=== PATIENT | female | born 1950 | race Caucasian/White ===

== ENCOUNTER 2022-07-03 16:06 | Outpatient (CLI) | payer MEDICARE, SELFPAY ==
--- OUTSIDE RECORDS SUMMARY | 2022-07-03 08:14 | XMS_ITS | Clinical Summary ---
:1950 Author Organization [employer] [facility] [employer] [facility] [place] [address] Care Team Providers Name Role Phone Rasta Maldonado MD Primary Care Provider Jumana Capps Unavailable [phone] Allergies No known active allergies Medications Medication Sig Dispensed Refills Start End Date Status Date lisinopril Take 1 tablet by 0 Ac tive (PRINIVIL; mouth 2 times 3 ZESTRIL) 20 mg daily. tablet carvedilol (COREG) Take 1 tablet by 0 Active 25 mg tablet mouth 2 times 3 daily with meals. spironolactone Take 1 tablet by 0 Active (ALDACTONE) 25 mg mouth once daily. 3 tablet HYDROcodone-acetam Take 1 tablet by 40 tablet 0 Active inophen, 5-500 mg, mouth every 6 3 (VICODIN) Tab hours if needed tablet for Pain. Max acetaminophen dose: 4000mg in 24 hrs. nystatin Apply topically 30 g 0 Acti ve (MYCOSTATIN) to affected 6 creamIndications: area(s) 3 times Skin yeast daily. infection fluconazole Take one tablet 6 tablet 0 Ac tive (DIFLUCAN) 150 mg twice weekly x 3 6 tabletIndications: weeks. Rochelle infection spironolactone Take 1 Tablet (25 90 tablet. 4 Active (ALDACTONE) 25 mg mg) by mouth once 1 tabletIndications: daily. Primary cardiomyopathy (HC) losartan (COZAAR) TAKE ONE TABLET 90 Tablet 2 Active 25 mg BY MOUTH ONE TIME 2 tabletIndications: DAILY Primary cardiomyopathy (HC) atorvastatin TAKE ONE TABLET 90 Tablet 2 A ctive (LIPITOR) 20 mg BY MOUTH ONE TIME 2 tabletIndications: DAILY Primary cardiomyopathy (HC) carvediloL (COREG) TAKE ONE TABLET 180 Tablet 2 Active 25 mg BY MOUTH TWICE A 2 tabletIndications: DAY WITH MEALS Primary cardiomyopathy (HC) atorvastatin Take 1 Tablet (20 90 tablet. 4 06/18/20 Discontinued (LIPITOR) 20 mg mg) by mouth once 10 14 tabletIndications: daily. Primary cardiomyopathy (HC) carvediloL (COREG) Take 1 Tablet (25 180 tablet. 4 0 06/18/20 Discontinued 25 mg mg) by mouth 2 10 14 tabletIndications: times daily with Primary meals. cardiomyopathy (HC) losartan (COZAAR) Take 1 Tablet (25 90 Tablet 4 05/25 Discontinued 25 mg mg) by mouth once 10 14 tabletIndications: daily. Primary cardiomyopathy (HC) Active Problems No known active problems Encounters Date Type Specialty Care Team Description 06/18/2022 Refill Fernando Gibson MD Re fill Request (Losartan, Atorvastatin, C arvedilol) from Last 3 Months Immunizations Name Administration Dates Next Due Td (Age >=7 Years) 12/19/1999 Family History Medical History Relation Name Comments Cancer Father Lung 1978 Relation Name Status Comments Father Social History Tobacco Use Types Packs/Day Years Used Date Former Smoker Cigarettes 0.5 30 Quit: 03/06/20 14 Smokeless Tobacco: Never Used Tobacco Cessation: Counseling Given: Yes Alcohol Use Standard Drinks/Week Comments Yes 0 (1 standard drink = 0.6 oz pure alcoho l) rarely Sex Assigned at Date Recorded Not on file Obstetrics History Last Filed Vital Signs Vital Sign Reading Time Taken Comments Blood Pressure 140/84 04/11/2016 9:47 AM CDT Pulse 87 04/11/2016 9:47 AM CDT Temperature 37.3 ??C (99.1 ??F) 04/11/2016 9:47 AM CDT Respiratory Rate - - Oxygen Saturation 94% 04/11/2016 9:47 AM CDT Inhaled Oxygen Concentration - - Weight 99.6 kg (219 lb 9.6 oz) 04/11/2016 9:47 AM CDT Height 158.5 cm (5' 2.4) 04/11/2016 9:47 AM CDT Body Mass Index 39.65 04/11/2016 9:47 AM CDT Plan of Treatment Health Maintenance Due Date Last Done Comments Pneumococcal series for age 65+ (1 - 1957 PCV) Tdap 1962 Depression screening for age 12+ 1963 Hepatitis C screening for age 18-79 1969 Colonoscopy through age 75 01/10/1996 Lipids for age 45-75 01/10/1996 Mammogram for age 45-75 01/10/1996 Zoster (shingles) series for age 50+ 2001 (1 of 2) Tetanus booster 12/18/2009 12/19/1999 DEXA/DXA scan for age 65+ 01/10/2016 Medicare Wellness for age 65+ 01/10/2016 BMI (ht and wt on same day) for age 0704/11/2017 04/11/2016 18+ COVID-19 vaccine series (4 - Booster 04/28/2022 03/03/2022, 02/21/2021, for Moderna series) 01/23/2021 Influenza for age 65+ 05/24/2022 Results Not on filefrom Last 3 Months Insurance Payer Benefit Plan / Subscriber ID Effective Dates Phone Addre ss Type Group MEDICARE PART B MEDICARE PART [id number] 2015-Presen ATTN: CLAIMS - HB USE ONLY B HB ONLY t [address] [place] [address] MEDICARE PART A MEDICARE PART [id number] 2015-Presen ATTN: CLAIMS - HB USE ONLY A HB ONLY t [address] [place] [address] [facility] MR [id number] 2021-Presen [address] [place] [address] [employer] [id number] 2017-Presen [address] [address] [place] [address] [id number] Care Teams Woodworking Shop Hand Relationship Specialty Start Date End Date Rasta Maldonado MD PCP - General Internal Medicine 04/04/181999 [place], [place] [id number] Jumana Capps PA Family Practice 04/04/18 [address] [place] [address]
[2022-07-03 09:35] LABS: Cholesterol* 187 mg/dL (90-199); Glucose* 184 mg/dL (60-115)
[2022-07-03 09:36] LABS: HDL Cholesterol* 49 mg/dL (>=50); LDL Cholesterol Calculated 108 mg/dL (<100); Triglycerides* 151 mg/dL (40-149)
[2022-07-03 09:44] LABS: Creatinine Urine 66.6 mg/dL
[2022-07-03 09:49] LABS: Microalbumin Creatinine Ratio 10 mg/g (0-30); Microalbumin Urine < 1 mg/dL
== END 2022-07-03 16:07 | disposition home or self-care (01) ==
PROVIDERS: PCP Internal Medicine; Visit Provider Internal Medicine
DX: E11.9 Type 2 diabetes mellitus without complications (principal); E78.5 Hyperlipidemia, unspecified; I42.9 Cardiomyopathy, unspecified
CPT/HCPCS: 80061; 82043; 82570; 82947

== ENCOUNTER 2023-03-04 08:58 | Outpatient (CLI) | payer MEDICARE, SELFPAY | END 2023-03-04 08:59 | disposition home or self-care (01) | PROVIDERS: PCP Internal Medicine; Visit Provider Internal Medicine | DX: I10 Essential (primary) hypertension (principal); E78.5 Hyperlipidemia, unspecified; E11.9 Type 2 diabetes mellitus without complications | CPT/HCPCS: 80061; 82043; 82570; 82947 ==

== ENCOUNTER 2023-07-05 10:30 | Outpatient (CLI) | payer MEDICARE, SELFPAY ==
[2023-07-05 11:34] LABS: Creatinine Urine 86.6 mg/dL
[2023-07-05 11:39] LABS: Microalbumin Creatinine Ratio 10 mg/g (0-30); Microalbumin Urine 1 mg/dL
== END 2023-07-05 10:31 | disposition home or self-care (01) ==
LOC: NFLDREF 10:30
PROVIDERS: PCP Internal Medicine; Visit Provider Internal Medicine
DX: E11.9 Type 2 diabetes mellitus without complications (principal); I10 Essential (primary) hypertension; E78.5 Hyperlipidemia, unspecified; I42.9 Cardiomyopathy, unspecified
CPT/HCPCS: 80048; 82043; 82570

== ENCOUNTER 2024-01-22 07:41 | Outpatient (CLI) | payer MEDICARE, SELFPAY ==
--- OUTSIDE RECORDS SUMMARY | 2024-01-22 07:43 | XMS_ITS | Clinical Summary ---
Author Name Unknown Organization [employer] [facility] Address [place], [place] [address] Care Team Providers Care Senior Developer Name Role Phone Rasta Maldonado MD Primary Care Provider Jumana Capps Unavailable Allergies No known active allergies Medications Medication Sig Dispensed Refills Start Date End Date Status HYDROcodone-acetamin ophen, 5-500 mg, (VICODIN) Tab tablet Take 1 tablet by mouth every 6 hours if needed for Pain. Max acetaminophen dose: 4000mg in 24 hrs. 40 tablet 0 03/17/2013 Active nystatin (MYCOSTATIN) creamIndications:Ski n yeast infection Apply topically to affected area(s) 3 times daily. 30 g 0 04/11/2016 Active fluconazole (DIFLUCAN) 150 mg tabletIndications:Ca ndida infection Take one tablet twice weekly x 3 weeks. 6 tablet 0 04/18/2016 Active spironolactone (ALDACTONE) 25 mg tabletIndications:Pr imary cardiomyopathy (HC) Take 1 Tablet (25 mg) by mouth once daily. 90 tablet. 4 05/12/2021 Active carvediloL (COREG) 25 mg tabletIndications:Pr imary cardiomyopathy (HC) TAKE ONE TABLET BY MOUTH TWICE A DAY WITH MEALS 180 Tablet 2 06/18/2022 Active losartan (COZAAR) 25 mg tabletIndications:Pr imary cardiomyopathy (HC) Take 4 Tablets (100 mg) by mouth once daily. 90 Tablet 2 07/05/2023 Active dapagliflozin propanediol (Farxiga) 10 mg tabletIndications:Pr imary cardiomyopathy (HC) Take 1 Tablet (10 mg) by mouth once daily. 0 07/05/2023 Active aspirin (ECOTRIN) 81 mg enteric coated tabletIndications:Pr imary cardiomyopathy (HC) Take 1 Tablet (81 mg) by mouth once daily with a meal. 0 07/05/2023 Active atorvastatin (LIPITOR) 20 mg tabletIndications:Pr imary cardiomyopathy (HC) TAKE ONE TABLET BY MOUTH ONE TIME DAILY 90 Tablet 3 07/16/2023 Active Active Problems No known active problems Immunizations Name Administration Dates Next Due Td (Age >=7 Years) 12/19/1999 Family History Medical History Relation Name Comments Cancer Father Lung 1977 Relation Name Status Comments Father Social History Tobacco Use Types Packs/Day Years Used Date Smoking Tobacco: Former Cigarettes 0.5 30 0 03/06/1984 - 03/06/2014 Smokeless Tobacco: Never Tobacco Cessation:Counseling Given: Yes Alcohol Use Standard Drinks/Week Comments Yes 0 (1 standard drink = 0.6 oz pur e alcohol) rarely Social Connections Answer Date Recorded Frequency of Communication with Friends and Fami ly Not on file 09/23/2021 Financial Resource Strain Answer Date R ecorded Difficulty of Paying Living Expenses Not on file 09/23/2021 Difficulty of Paying Living Expenses Not on file 09/23/2021 Sex and Gender Information Value Date Recorded Sex Assigned at Not on file Gender Identity Not on file Sexual Orientation Not on file Obstetrics History Last Filed Vital Signs Vital Sign Reading Time Taken Comments Blood Pressure 140/84 04/11/2016 9:47 AM CDT Pulse 87 04/11/2016 9:47 AM CDT Temperature 37.3 ??C (99.1 ??F) 04/11/2016 9:47 AM CD T Respiratory Rate - - Oxygen Saturation 94% 04/11/2016 9:47 AM CDT Inhaled Oxygen Concentration - - Weight 99.6 kg (219 lb 9.6 oz) 04/11/2016 9:47 A M CDT Height 158.5 cm (5' 2.4) 04/11/2016 9:47 AM CDT Body Mass Index 39.65 04/11/2016 9:47 AM CDT Plan of Treatment Upcoming Encounters Date Type Department Care Team (Late st Contact Info) Description 01/22/2024 8:00 AM CDT Ancillary Procedure [facility] [address] [place] [address] Health Maintenance Due Date Last Done Comments Tdap 1962 Depression screening for age 12+ 1963 Hepatitis C screening for ag e 18-79 1969 Colonoscopy through age 75 01/10/1996 Lipids for age 45-75 01/10/1996 Mammogram for age 45-75 01/10/1996 Zoster (shingles) series for age 50+ (1 of 2) 2001 Tetanus booster 12/18/2009 12/19/1999 DEXA/DXA scan for age 65+ 01/10/2016 Medicare Wellness for age 65+ 01/10/2016 Pneumococcal series for age 65+ (1 of 1 - PCV) 01/10/2016 BMI (ht and wt on same day) for age 18+ 04/11/2017 04/11/2016 Influenza for age 65+ 05/24/2024 COVID-19 vaccine series Completed 06/21/20, 07/04/2022, 03/03/2022, Additional history exists Care Teams Senior Developer Relationship Specialty Start Date End Date Rasta Maldonado MD [address] [place] [address] PCP - General Internal Medicine 04/04/18 Jumana Capps PA [address] [place] [address] Family Practice 04/04/18
[2024-01-22] MEDS: PERFLUTREN LIPID MICROSPHERES 2 ML VIAL IV (08:58)
== END 2024-01-22 07:42 | disposition home or self-care (01) ==
LOC: RAD 07:42
PROVIDERS: PCP Internal Medicine; Visit Provider Internal Medicine
DX: I50.9 Heart failure, unspecified (principal); I34.0 Nonrheumatic mitral (valve) insufficiency; I35.1 Nonrheumatic aortic (valve) insufficiency
CPT/HCPCS: 93306; Q9957

== ENCOUNTER 2024-02-10 07:00 | Outpatient (CLI) | payer MEDICARE, SELFPAY ==
--- OUTSIDE RECORDS SUMMARY | 2024-02-28 08:39 | XMS_ITS | Clinical Summary ---
Author Organization [employer] [facility] Address [place], [place] [address] Care Team Providers Care Verification Specialist Name Role Phone Rasta Maldonado MD Primary Care Provider Jumana Capps Unavailable [phone] Allergies No known active allergies Medications Medication [...] Active Active Problems No known active problems Encounters Date Type Department Care Team Description 01/23/2024 Telephone [facility] [address] [place] [address] [facility] [place] [address] Raiza Kam MD Results 01/22/2024 8:00 AM CDT Ancillary Procedure [facility] [address] [place] [address] 01/22/2024 Travel from Last 3 Months Immunizations Name Administration [...] age 65+ 05/24/2024 COVID-19 vaccine series Completed 06/21/20 23, 07/04/2022, 03/03/2022, Additional history exists Procedures Procedure Name Priority Date/Time Associated Diagnosis Comments ECHO TTE COMPLETE W CONTRAST Routine 01/22/2024 8:58 AM CDT Heart failure (HC) from Last 3 Months Results * ECHO TTE COMPLETE W CONTRAST (01/22/2024 8:58 AM CDT) AORTIC VALVE MEAN PG 5 mmHg EJECTION FRACTION 55 % LVEDD 5.8 cm Anatomical Region Laterality Modality Ultrasound 01/22/2024 8:07 AM CDT Narrative 01/22/2024 10:19 AM CDT ECHOCARDIOGRAM DIANE ROLDAN ? Accession#: ?? [id number] : ?1950 74 years Study Date: ?? 01/22/2024 8:07:04 AM Gender: F ?BP: ? 154/75 mmHg Height: 157.00 cm ?BSA: ?1.99 m? ? ? Weight: 100.00 kg ?Tech: ? MSR ? Referring MD: RAIZA KAM Site: ? [facility] Reading Location: Mobile OP Patient Location: Outpatient. Procedure: 2D w/ Contrast, Color Doppler and Spectral Doppler. Indication for study: Heart failure Cardiac Rhythm: Regular.Study quality: Technically limited. Final Impressions: 1. Technically limited exam. 2. Mild to moderately increased left ventricular size, normal wall thickness, low normal global systolic function, calculated EF of 55 %. 3. Echo contrast was administered to enhance visualization of all left ventricular segments. 4. Right ventricular cavity size is normal, global systolic RV function is normal. 5. Normal left atrium size. 6. The aortic valve is normal, no stenosis and trivial regurgitation. 7. The mitral valve is sclerotic, trace mitral regurgitation. 8. Tricuspid valve is normal. 9. No pericardial effusion. Chamber Sizes and Function Mild to moderately increased left ventricular size, normal wall thickness, low normal global systolic function, calculated EF of 55 %. Left atrial size is normal. Right ventricular cavity size is normal, global systolic RV function is normal. The right atrium is normal. The pulmonary artery is not well visualized. The sinus of Valsalva is normal sized. The ascending aorta is normal sized. Valves, RV Pressures and Diastolic Function The aortic valve is normal in structure, no stenosis and trivial regurgitation. The mitral valve is sclerotic, trace mitral regurgitation. Indeterminate pattern of LV diastolic filling. The tricuspid valve is normal in structure. Tricuspid regurgitation is trace regurgitation. The pulmonic valve is normal. Trace pulmonary regurgitation. Masses, Effusion, Shunts There is no pericardial effusion. The inferior vena cava is normal sized, respiratory size variation greater than 50%. Interatrial septum is not well visualized. MEASUREMENTS AND CALCULATIONS 2-D Measurements and LV Function: LVID (d) 5.8 cm Planimetered EF 55 % LVID (s) 4.5 cm LV FS% (2D) ? 23 % IVS (d) ??0.9 cm LVOT diameter ?? 2.2 cm LVPW (d) 0.9 cm HR ?71 bpm Ao Sinus 3.0 cm LA Vol index ?26 ml/m2 Asc Ao ?? 3.7 cm RV Max 4C (d) ?? 3.4 cm Diastology: Mitral ?Tissue Doppler E Peak 0.8 m/s ??e', Septum ? 0.06 m/s A Peak 1.0 m/s ??e', Lateral ?0.06 m/s E/A ?0.8 ?E/e' Average ?? 13.27 DT ? 219 msec Aortic Valve: Vmax ? 1.5 m/s ??WILL (V) ?? 2.56 cm? ? ? VTI ?0.34 m ?? WILL (I) ?? 2.75 cm? ? ? LVOT V max 1.0 m/s ??Max PG ?9 mmHg LVOT VTI ?? 0.23 m ?? Mean PG ?? 5 mmHg SV ? 93 ml ?Dim Index 0.69 SV index ?? 47 ml/m? ? ? CO ?6.6 l/min ?CI ?3.3 l/min/m? ? ? Mitral Valve: MVA ? 3.5 cm? ? ? MV P 1/2 ??64 msec MV Mean G 3 mmHg MV VTI ?0.34 m Tricuspid Valve and estimated PA pressures: TAPSE 2.2 cm Contrast documentation: 2 ml diluted Definity, lot #[id number], [facility]# [id number] was administered peripherally to enhance visualization of all left ventricular segments. . This study was interpreted by an IAC accredited facility. CC: HIM (med records) [facility]. ??Final ?? Procedure Note Letty Coles, [facility] - 01/22/2024 ECHOCARDIOGRAM DIANE ROLDAN : 1950 74 years Study Date: 01/22/2024 8:07:04 AM Gender: F BP: 154/75 mmHg Height: 157.00 cm BSA: 1.99 m? ? ? Weight: 100.00 kg Tech: MSR Referring MD: RAIZA KAM Site: [facility] Reading Location: Mobile OP Patient Location: Outpatient. Procedure: 2D w/ Contrast, Color Doppler and Spectral Doppler. Indication for study: Heart failure Cardiac Rhythm: Regular.Study quality: Technically limited. Final Impressions: 1. Technically limited exam. 2. Mild to moderately increased left ventricular size, normal wallthickness, low normal global systolic function, calculated EF of 55 %. 3. Echo contrast was administered to enhance visualization of all leftventricular segments. 4. Right ventricular cavity size is normal, global systolic RV functionis normal. 5. Normal left atrium size. 6. The aortic valve is normal, no stenosis and trivial regurgitation. 7. The mitral valve is sclerotic, trace mitral regurgitation. 8. Tricuspid valve is normal. 9. No pericardial effusion. Chamber Sizes and Function Mild to moderately increased left ventricular size, normal wall thickness,low normal global systolic function, calculated EF of 55 %. Left atrialsize is normal. Right ventricular cavity size is normal, global systolicRV function is normal. The right atrium is normal. The pulmonary artery isnot well visualized. The sinus of Valsalva is normal sized. The ascendingaorta is normal sized. Valves, RV Pressures and Diastolic Function The aortic valve is normal in structure, no stenosis and trivialregurgitation. The mitral valve is sclerotic, trace mitral regurgitation.Indeterminate pattern of LV diastolic filling. The tricuspid valve isnormal in structure. Tricuspid regurgitation is trace regurgitation. Thepulmonic valve is normal. Trace pulmonary regurgitation. Masses, Effusion, Shunts There is no pericardial effusion. The inferior vena cava is normal sized,respiratory size variation greater than 50%. Interatrial septum is notwell visualized. MEASUREMENTS AND CALCULATIONS 2-D Measurements and LV Function: LVID (d) 5.8 cm Planimetered EF 55 % LVID (s) 4.5 cm LV FS% (2D) 23 % IVS (d) 0.9 cm LVOT diameter 2.2 cm LVPW (d) 0.9 cm HR 71 bpm Ao Sinus 3.0 cm LA Vol index 26 ml/m2 Asc Ao 3.7 cm RV Max 4C (d) 3.4 cm Diastology: Mitral Tissue Doppler E Peak 0.8 m/s e', Septum 0.06 m/s A Peak 1.0 m/s e', Lateral 0.06 m/s E/A 0.8 E/e' Average 13.27 DT 219 msec Aortic Valve: Vmax 1.5 m/s WILL (V) 2.56 cm? ? ? VTI 0.34 m WILL (I) 2.75 cm? ? ? LVOT V max 1.0 m/s Max PG 9 mmHg LVOT VTI 0.23 m Mean PG 5 mmHg SV 93 ml Dim Index 0.69 SV index 47 ml/m? ? ? CO 6.6 l/min CI 3.3 l/min/m? ? ? Mitral Valve: MVA 3.5 cm? ? ? MV P 1/2 64 msec MV Mean G 3 mmHg MV VTI 0.34 m Tricuspid Valve and estimated PA pressures: TAPSE 2.2 cm Contrast documentation: 2 ml diluted Definity, lot #[id number], [facility]#[id number] was administered peripherally to enhance visualization of allleft ventricular segments. . This study was interpreted by an IAC accredited facility. CC: [facility] (med [facility]) [facility]. Final Raiza Kam MD ECHO ORD from Last 3 Months Care Teams Verification Specialist Relationship Specialty Start Date End Date Rasta Maldonado MD [address] [place] [address] PCP - General Internal Medicine 04/04/18 Jumana Capps PA [address] [place] [address] Family Practice 04/04/18
== END 2024-02-10 07:01 | disposition home or self-care (01) ==
LOC: NFLDREF 02-28 08:37
PROVIDERS: PCP Internal Medicine; Referring Provider Internal Medicine; Visit Provider Internal Medicine
DX: E11.9 Type 2 diabetes mellitus without complications (principal); E78.5 Hyperlipidemia, unspecified; I10 Essential (primary) hypertension
CPT/HCPCS: 80053; 80061; 82043; 82570

== ENCOUNTER 2024-06-22 14:42 | Outpatient (CLI) | payer MEDICARE, SELFPAY ==
--- OUTSIDE RECORDS SUMMARY | 2024-06-22 14:44 | XMS_ITS | Clinical Summary ---
Author Organization [employer] [facility] Address [place], [place] [address] Care Team Providers Care Electrical Sign Servicer Name Role Phone Rasta Maldonado MD Primary Care Provider Jumana Capps Unavailable [phone] Allergies No known active allergies Medications Medication [...] 3 weeks. 6 tablet 0 04/18/2016 Active aspirin (ECOTRIN) 81 mg enteric coated tabletIndications:Pr imary cardiomyopathy (HC) Take 1 Tablet (81 mg) by mouth once daily with a meal. 90 Tablet 3 04/16/2024 Active atorvastatin (LIPITOR) 20 mg tabletIndications:Pr imary cardiomyopathy (HC) Take 1 Tablet (20 mg) by mouth once daily. 90 Tablet 3 04/16/2024 Active carvediloL (COREG) 25 mg tabletIndications:Pr imary cardiomyopathy (HC) Take 1 Tablet (25 mg) by mouth two times daily with meals. 180 Tablet 2 04/16/2024 Active empagliflozin (Jardiance) 10 mg tabletIndications:Pr imary cardiomyopathy (HC) Take 1 Tablet (10 mg) by mouth once daily. 90 Tablet 3 04/16/2024 Active losartan (COZAAR) 100 mg tabletIndications:Pr imary cardiomyopathy (HC) Take 1 Tablet (100 mg) by mouth once daily. 90 Tablet 3 04/16/2024 Active spironolactone (ALDACTONE) 25 mg tabletIndications:Pr imary cardiomyopathy (HC) Take 1 Tablet (25 mg) by mouth once daily. 90 Tablet 4 04/16/2024 Active Active Problems No known active problems Encounters Date Type Department Care Team Description 04/16/2024 2:00 PM CDT Office Visit [facility] [address] [place] [address] Da Ray MD CV General Cardiology Est from Last 3 Months Immunizations Name Administration [...] same day) for age 18+ 04/11/2017 04/11/2016 COVID-19 vaccine series (2022- season) 2024 06/21/2023, 07/04/2022, 03/03/2022, Additional history exists Influenza for age 65+ 05/24/2024 Care Teams Electrical Sign Servicer Relationship Specialty Start Date End Date Rasta Maldonado MD [address] [place] [address] PCP - General Internal Medicine 04/04/18 Jumana Capps PA [address] [place] [address] Family [facility] 04/04/18
== END 2024-06-22 14:43 | disposition home or self-care (01) ==
LOC: NFLDREF 14:42
PROVIDERS: PCP Internal Medicine; Visit Provider Internal Medicine
DX: E11.9 Type 2 diabetes mellitus without complications (principal); Z79.4 Long term (current) use of insulin
CPT/HCPCS: 82043; 82570

== ENCOUNTER 2025-02-23 10:16 | Outpatient (CLI) | payer MEDICARE, BC, SELFPAY | END 2025-02-23 10:17 | disposition home or self-care (01) | LOC: NFLDREF 02-25 15:27 | PROVIDERS: PCP Internal Medicine; Referring Provider Internal Medicine; Visit Provider Internal Medicine | DX: E11.9 Type 2 diabetes mellitus without complications (principal); E78.5 Hyperlipidemia, unspecified; I10 Essential (primary) hypertension; I42.9 Cardiomyopathy, unspecified | CPT/HCPCS: 80053; 80061; 82043; 82570 ==

== ENCOUNTER 2025-06-09 12:11 | Outpatient (CLI) | payer MEDICARE, BC, SELFPAY ==
[2025-06-09 12:21] VITALS: BP 130/80; PULSE 79; RESP 16; TEMP 36.7; O2SAT 95
[2025-06-09 14:13] VITALS: BP 138/82; PULSE 80; RESP 16; O2SAT 97
--- NOTE | 2025-06-09 15:05 | PM.PROC ---
Procedure Note Time Seen by Provider: 13:00 Date Seen: 06/09/25 Provider Contact Time: 14:00 Date of procedure: 06/09/25 Will [facility] bill your pro fee for this procedure?: Yes Procedure: CRYONEUROLYSIS TREATMENT REPORT DATE OF PROCEDURE: 06/09/2025 REFERRING PROVIDER: Brett Monterroso TREATMENT PROVIDER: Rudy Gerard PREOPERATIVE DIAGNOSIS: left knee osteoarthritis POSTOPERATIVE DIAGNOSIS: left knee osteoarthritis? PROCEDURE: Cryoneurolysis of Multiple Sensory Nerves of the Knee ANESTHESIA: Local INDICATIONS: The patient is a very pleasant 75-year-old female with primary osteoarthritis involving the left knee who presents today for cryoneurolysis of multiple sensory nerves to the knee for severe knee pain.?Patient medical history was reviewed. The risks, benefits, treatment alternatives, and complications were discussed with the patient, including but not limited to bleeding, infection, nerve or tissue damage.?Informed consent was obtained. ? PRE-TREATMENT MOTOR ASSESSMENT/PAIN SCORE: Patient was able to demonstrate intact gross motor function with plantarflexion, dorsiflexion, adduction, abduction, hip flexion, and extension of the lower extremity.?Pre-treatment pain score of 8 out of 10 in the left knee. DESCRIPTION OF PROCEDURE: After obtaining informed consent, the patient was brought back to the treatment room and positioned supine on the table.?The left lower extremity was prepped with Chlorhexadine.?We began the procedure by performing our procedural pause.?Once this was completed and verified to be accurate, I began the procedure by identifying the nerves with the use of bedside ultrasound.?After the nerves were identified, the skin was marked and, using 1% lidocaine plain, the area of the nerves were anesthetized. ? After the anesthetic was administered, the Smart Tip 2190 cryoneurolysis needle was inserted into the treatment sites using ultrasound guidance.?Treatment was then initiated on the left lower extremity with the following nerves treated: superior, superior medial superior lateral, inferior medial genicular nerves.. At the termination of the treatment, the cryoneurolysis needle was removed with the patient's skin cleansed and a compression sleeve was applied. Patient tolerated the procedure without any incident or concern.? Patient was then instructed to stand, mobilize the joint, and was examined to ensure gross motor skills were intact. COMPLICATIONS: None POST-TREATMENT PAIN SCORE: 0 out of 10. left knee DISPOSITION: Discharge instructions were given to the patient with education on the post-procedure expectations. Patient was instructed to call the Ortho clinic with any post-procedure concerns or questions. Anesthesia: none
== END 2025-06-09 14:14 | disposition home or self-care (01) ==
LOC: OP CLINIC 12:12
PROVIDERS: PCP Internal Medicine; Visit Provider Nurse Anesthetist, Certified Registered
DX: M17.12 Unilateral primary osteoarthritis, left knee (principal)
CPT/HCPCS: 64640; 76942; C9809

== ENCOUNTER 2025-06-24 10:10 | Day surgery (SDC) | payer MEDICARE, BC, SELFPAY ==
[2025-06-24] VITALS (24 sets, daily range): BP systolic 81–202; BP diastolic 40–100; PULSE 52–89; RESP 14–20; TEMP 36.4–36.8; O2SAT 88–98; BMI 37.2
[2025-06-24] MEDS: LACTATED RINGERS 1000 ML 1,000 ML 100 ML IV ×2 (11:09→13:50)
[2025-06-24] MEDS: SODIUM CHLORIDE 0.9 % (FLUSH) 10 ML SYRINGE IVF (11:09)
[2025-06-24] MEDS: ACETAMINOPHEN 500 MG TABLET 1000 MG PO ×3 (11:20→23:28)
[2025-06-24] MEDS: OXYCODONE (CR) 10 MG TAB.ER.12H PO (11:21)
[2025-06-24] MEDS: CELECOXIB 200 MG CAPSULE PO (11:21)
[2025-06-24] MEDS: MIDAZOLAM HCL 1 MG/ML inj IVP (11:50)
--- NOTE | 2025-06-24 12:01 | SUR.PREOP ---
TIME?OUT:?1047, left knee PT/RN/MDA?VERIFICATION?OF?SURGICAL?SITE,?PROCEDURE,?AND?CONSENT OBTAINED?PRIOR?TO?INVASIVE?PROCEDURE.
--- NOTE | 2025-06-24 12:03 | W.PM.NB ---
Nerve Block Nerve Block Time Seen by Provider: 12:00 Date Seen: 06/24/25 Type of block requested by surgeon for post-operative analgesia: adductor canal Side: left Time out performed: Yes Verification of patient name: Yes Verification of date of : Yes Site marking: site marked Name of person performing procedure: Moustapha Continuous monitoring Was continuous monitoring of O2 sat, B/P, sales appointment coordinator, recorded every 15 minutes?: Yes Procedure Checklist: sterile prep, needles and gloves Ultrasound guided. Images saved: Yes Medications given in 5ml increments after negative aspiration: Marcaine %: 0.25 mL: 15 Needle gauge: 20 Precedex (mcg): 25 Patient tolerated procedure well: Yes Block Charges Block Charge (with Pro Fee): Femoral Nerve Use of Ultrasound Machine for Block: Yes- US Guidance/pain block
--- NOTE | 2025-06-24 12:03 | SUR.PREOP ---
TIME?OUT:?1147, left knee PT/RN/MDA?VERIFICATION?OF?SURGICAL?SITE,?PROCEDURE,?AND?CONSENT OBTAINED?PRIOR?TO?INVASIVE?PROCEDURE.
--- NOTE | 2025-06-24 12:04 | P.ANES_ITS ---
Anesthesia Charges Start Date/Time Anesthesia Start Date: 06/24/25 Anesthesia Start Time: 13:00 Stop Date/Time Anesthesia Stop Date: 06/24/25 Anesthesia Stop Time: 15:25 Summary Extremes of Age - Over 70 or under 1: MDA Coding CPT Codes CPT Codes: ANESTH KNEE ARTHROPLASTY - 44096 ([id number]) P3 - PATIENT W/SEVERE SYS DISEASE, QK - ACCOUNT DEVELOPMENT REPRESENTATIVE 2-4 CNCRNT ANES PROC, QX - CLIENT SERVICES REPRESENTATIVE SVC W/ MD MED DIRECTION Additional Codes: Summary - Extremes of Age - Over 70 or under 1: MDA ([id number])
--- NOTE | 2025-06-24 12:04 | W.PM.NB ---
Nerve Block Nerve Block Time Seen by Provider: 12:00 Date Seen: 06/24/25 Type of block requested by surgeon for post-operative analgesia: geniculars Time out performed: Yes Verification of patient name: Yes Verification of date of : Yes Site marking: site marked Name of person performing procedure: Moustapha Continuous monitoring Was continuous monitoring of O2 sat, B/P, telemetry monitor, recorded every 15 minutes?: Yes Procedure Checklist: sterile prep, needles and gloves Ultrasound guided. Images saved: Yes Medications given in 5ml increments after negative aspiration: Marcaine %: 0.25 mL: 9 Needle gauge: 25 Patient tolerated procedure well: Yes Block Charges Block Charge (with Pro Fee): Genicular Nerve Block
--- NOTE | 2025-06-24 12:04 | W.ANESCHARGE ---
Anesthesia Charges Start Date/Time Anesthesia Start Date: 06/24/25 Anesthesia Start Time: 13:00 Stop Date/Time Anesthesia Stop Date: 06/24/25 Anesthesia Stop Time: 15:25 Summary Extremes of Age - Over 70 or under 1: MDA Coding CPT Codes CPT Codes: ANESTH KNEE ARTHROPLASTY - 18495 ([id number]) P3 - PATIENT W/SEVERE SYS DISEASE, QK - INFORMATION SCIENTIST 2-4 CNCRNT ANES PROC, QX - APPRAISAL ANALYST SVC W/ MD MED DIRECTION Additional Codes: Summary - Extremes of Age - Over 70 or under 1: MDA ([id number])
[2025-06-24] MEDS: TRANEXAMIC ACID 100 MG/ML INJ 1000 MG IV (13:15)
--- NOTE | 2025-06-24 15:02 | CRLHL7_ITS ---
For Patients: As a result of the Cures Act, medical imaging exams and procedure reports are released immediately into your electronic medical record. You may view this report before your referring provider. If you have questions, please contact your health care provider. Indication: POST OP Technique: Two views left knee Findings/Impression: Hardware from a left total knee arthroplasty is in satisfactory position. Bone alignment is normal. No sign of acute fracture. Postop changes are within normal limits. Dictated by Manny Spencer MD @ 06/25/2025 11:01:22 AM (Electronically Signed)
--- NOTE | 2025-06-24 15:08 | P.ORPRC_ITS ---
Procedure Note Date of procedure: 06/24/25 Procedure: PREOPERATIVE DIAGNOSIS: Left knee osteoarthritis POSTOPERATIVE DIAGNOSIS: Left knee osteoarthritis NAME OF OPERATION: Left total knee arthroplasty SURGEON: Yosef Monterroso MD PUBLISHING MANAGER: HENNY Munoz ANESTHESIA: Spinal ESTIMATED BLOOD LOSS: 0 mL COMPLICATIONS: None SPECIMENS: None DRAINS: None PREOPERATIVE ANTIBIOTICS: Ancef 2g, antibiotic impregnated cement IMPLANTS: 1. J&J Attune revision CRS # 5 posterior stabilized femur, 14 mm x 50 mm cemented stem 2. Revision CRS # 5 fixed-bearing tibia, 14 mm x 50 mm cemented stem 3. # 5 posterior stabilized, constrained 8 mm fixed-bearing polyethylene 4. 38 patella INDICATIONS: The patient is a 75-year-old with a longstanding history of severe, unrelenting left knee pain secondary to end-stage (grade IV) left knee osteoarthritis. Despite appropriate nonoperative management, including activity modification, anti-inflammatories, ntnm-drs-emiewvo pain medication, bracing, physical therapy, and injections they continue to have pain and disability. Op erative intervention was offered. The risks, benefits and expected outcomes were discussed in detail. These included but were not limited to: Infection, bleeding, injury to blood vessel or nerve, venous thromboembolism. All questions were answered to their satisfaction. Use of an boiler assistant operator was necessary throughout the case for patient positioning and safety, soft tissue retraction, and closure. MR 522 should be added to this case. With a BMI of 37, to reduce the risk of aseptic loosening a stemmed tibial component was used. Because bone quality was poor and the MCL gave way, we elected to go with a constrained polyethylene and stemmed femoral component. This added time and cost to complete the case. PROCEDURE: Spinal anesthesia was administered. The patient was placed supine on the operating table. The boiler assistant operator made sure the patient was positioned appropriately. The lower extremity was prepped and draped in the usual sterile fashion. The limb was exsanguinated with the Jan bandage. The pneumatic tourniquet was inflated to 225mmHg. A standard anterior incision was made with the knee in flexion. Subcutaneous dissection was sharply taken through fascial layer #1. Full-thickness medial and lateral flaps were elevated. The boiler assistant operator retracted the soft tissues and protected them throughout the case. A standard subvastus approach was made. The patella was subluxed. The infrapatellar fat pad was preserved. The menisci and cruciate ligaments were sharply d?brided. Marginal osteophytes were d?brided with the rongeur. The drill was used to penetrate the femoral canal. The intramedullary femoral guide was placed for a 5-degree valgus cut, removing 10 mm off the distal femur. The saw was used to make the cut. Whitesides line and the trans epicondylar axis were marked. The femoral sizing guide was pinned onto the distal femur. Three degrees of external rotation nicely parallels the transepicondylar axis. Pins were placed for posterior referencing. The four-in-one cutting guide was pinned onto the distal femur. The anterior, posterior, and chamfer cuts were made. The boiler assistant operator protected the collateral ligaments. The box cutting guide was pinned. The box cuts were made. The boxed trial was placed and was an excellent fit. Drill holes for the lugs were made. Attention was then turned to the proximal tibia. The intramedullary tibial guide was placed for a neutral varus/valgus cut with 3 degrees of posterior slope, removing 0 mm based off the medial tibial surface. The boiler assistant operator protected the collateral ligaments and the neurovascular bundle. The saw was used to make the cut. Trial components were placed. The knee nicely comes to full extension. With gentle valgus stress MCL was felt to give way. Now there is grade 2 instability to valgus stress at 30?, with an 8 mm poly. Therefore, we elected to convert to a constrained design. Attention was returned to the femoral prep. The revision trial was placed. The box cuts were made. The drill was used x2. The stemmed, boxed trial was placed and was an excellent fit. Trial components were placed. Now the knee was nicely balanced in both flexion and extension. The trial components were removed. The tray was placed in appropriate rotation, parallel to our tibial cutting pins. It was pinned by the boiler assistant operator and the drill x2 was used. The stemmed tibial trial was placed. The punch was used. The tray was removed. The punch was used again. Attention was then turned to the patella. [place] patellar thickness was 22 mm. The lobster claw resection guide was used with the 9.5 mm rosalee. The saw was used to make the cut. Drill holes were made by the boiler assistant operator. The trial was placed and was an excellent fit. Cancellous surfaces were irrigated with pulse lavage and thoroughly dried by the boiler assistant operator. We cemented the tibial component, we impacted the 8 mm polyethylene onto the tibial tray. We then cemented the femoral component, elevating it up and over the tibial post. It was impacted onto the distal femur. Excess cement was removed. The knee was brought into full extension. We then cemented the patellar component. Excessive cement was removed. The cement was allowed to harden. The knee was taken through a range of motion and was found to be nicely balanced in both flexion and extension. The patella tracks centrally. The boiler assistant operator did a three minute dilute Betadine solution soak. The boiler assistant operator irrigated the wound with 3 liters of normal saline via pulse lavage. The boiler assistant operator reapproximated the extensor mechanism with #1 Vicryl in an interrupted gpnicr-vo-wvlif fashion. The boiler assistant operator then ran the extensor mechanism with a #1 PDO Stratafix. The boiler assistant operator closed the subcutaneous tissues with a 3-0 Stratafix and the skin with a running 3-0 Stratafix in a subcuticular fashion. Glue was used to seal the skin. The boiler assistant operator placed a dry dressing. Sponge and needle counts were correct x2. The patient tolerated the procedure well. There were no apparent complications. They were carefully transferred to the hospital bed and taken to the postanesthesia care unit in satisfactory condition. PLAN: The patient will be mobilized with physical therapy. Aspirin will be used for DVT prophylaxis. They will be discharged to home once medically appropriate.
--- NOTE | 2025-06-24 15:33 | P.ANES_ITS ---
Anesthesia Charges Start Date/Time Anesthesia Start Date: 06/24/25 Anesthesia Start Time: 13:00 Stop Date/Time Anesthesia Stop Date: 06/24/25 Anesthesia Stop Time: 15:25 Summary Extremes of Age - Over 70 or under 1: EMERGENCY CARE TECH Coding CPT Codes CPT Codes: ANESTH KNEE ARTHROPLASTY - 02068 ([id number]) P3 - PATIENT W/SEVERE SYS DISEASE, QK - TAX COMPLIANCE AGENT 2-4 CNCRNT ANES PROC Additional Codes: Summary - Extremes of Age - Over 70 or under 1: EMERGENCY CARE TECH ([id number])
--- NOTE | 2025-06-24 15:33 | W.ANESCHARGE ---
Anesthesia Charges Start Date/Time Anesthesia Start Date: 06/24/25 Anesthesia Start Time: 13:00 Stop Date/Time Anesthesia Stop Date: 06/24/25 Anesthesia Stop Time: 15:25 Summary Extremes of Age - Over 70 or under 1: PROJECT ENGINEER Coding CPT Codes CPT Codes: ANESTH KNEE ARTHROPLASTY - 62113 ([id number]) P3 - PATIENT W/SEVERE SYS DISEASE, QK - FIRE PROTECTION EQUIPMENT TECHNICIAN 2-4 CNCRNT ANES PROC Additional Codes: Summary - Extremes of Age - Over 70 or under 1: PROJECT ENGINEER ([id number])
--- NOTE | 2025-06-24 17:41 | P.IMCN_ITS ---
Date of Consult Consult date: 06/24/25 Primary Care Provider: Rasta Maldonado MD Consult Narrative Reason for consult: Medical management of comorbidities Narrative: Diane Roldan is a 75 year old female who presented to the hospital today for an elective L TKA with Dr. Monterroso of Orthopedic Surgery. There were no surgical or anesthetic complications noted during procedure. Patient's H&P reviewed, PCP is Dr. Maldonado Past medical history significant for: moderately enlarged LV size on previous TTE (EF 55%), IDDM2 with most recent A1C <7, essential HTN Postoperative plan: Home with . Diane had mild nausea postoperatively, that seems to be improving. No other concerns for hospitalist team. Review of Systems Status of ROS: Reports: 10 or more systems reviewed and unremarkable except as noted in History and below [facility] Medical History (Updated 06/24/25 @ 17:46 by Bindu Eason MD) Former smoker ?Z87.891 - Personal history of nicotine dependence (ICD-10) Malignant melanoma (04/01/13) ?C43.9 - Malignant melanoma of skin, unspecified (ICD-10) Fracture ?T14.8XXA - Other injury of unspecified body region, initial encounter (ICD- 10) Fracture of right distal radius ?S52.501A - Unspecified fracture of the lower end of right radius, initial encounter for closed fracture (ICD-10) Surgical History (Updated 06/24/25 @ 17:46 by Bindu Eason MD) Status post left knee replacement ?Z96.652 - Presence of left artificial knee joint (ICD-10) 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, initial encounter (ICD-10) H/O tubal ligation ?Z98.51 - Tubal ligation status (ICD-10) Social History (Updated 06/24/24 @ 13:12 by Jessica Dietrich ~ CT[facility]) What is your current living situation?: I presently have a place to live Problems where you live: no known problems In the past 12 months, utilities in danger of being shut off: no In past 12 months, lack of transportation kept you from medical appts, meetings, work, or getting things needed for daily living: no In the past 12 mos, have been you worried that your food would run out before you had money to buy more?: never true In the past 12 mos, the food you bought just didn't last and you didn't have money to buy more?: never true Smoking Status: Former smoker How often does anyone, including family, friends and others, physically hurt you : never How often does anyone, including family, friends and others, insult or talk down to you: never How often does anyone, including family, friends and others, threaten you with harm: never How often does anyone, including family, friends and others, scream or curse at you: never Meds Home Medications and Allergies Home Medications ?Medication ?Instructions ?Recorded ?Confirmed ?Type aspirin 81 mg tablet,delayed 81 mg PO DAILY 03/30/22 1 History release Held on 06/24/25. Instructions: Resume on 07/25/25. carvedilol 25 mg tablet 25 mg PO BID #180 tabs 02/1106/24/25 Rx empagliflozin 10 mg tablet 10 mg PO DAILY Diabetes #90 tabs 02/12/24 06/24/25 Rx spironolactone 25 mg tablet 25 mg PO DAILY Hypertensio n #90 02/12/24 06/24/25 Rx tabs glipizide 5 mg tablet 5 mg PO DAILY Diabetes #90 t abs 03/12/25 06/24/25 Rx esomeprazole magnesium 20 mg 20 mg PO DAILY GERD #90 c aps 03/15/25 06/24/25 Rx capsule,delayed release semaglutide 2 mg/dose (8 mg/3 mL) 2 mg (0.75 mL) subcu t QWEEK #3 mL 06/08/25 06/24/25 Rx subcutaneous pen injector (Ozempic) insulin glargine 100 unit/mL (3 25 unit (0.25 mL) subc ut QAM 06/10/25 06/24/25 Rx mL) subcutaneous pen (Lantus Diabetes #15 mL Solostar U-100 Insulin) acetaminophen 500 mg capsule 500 - 1,000 mg (1 - 2 x 5 00 mg) PO 06/24/25 Rx Q6H PRN pain #100 caps aspirin 81 mg chewable tablet 81 mg PO BID for DVT pro phylaxis 06/24/25 Rx (Aspirin Childrens) 30 days #60 tabs atorvastatin 40 mg tablet 40 mg PO HS Hyperlipidemia 1 06/24/25 History losartan 100 mg tablet 100 mg PO DAILY Hypertension 06/24/25 06/24/25 History oxycodone 5 mg tablet 2.5 - 5 mg (0.5 - 1 x 5 mg) PO 06/24/25 Rx Q4-6H PRN Pain #42 tabs sennosides 8.6 mg tablet (Senna 17.2 mg (2 x 8.6 mg) P O BID PRN 06/24/25 Rx Lax) constipation #100 tabs Allergies Allergy/AdvReac Type Severity Reaction Status Date / Time No Known Drug Allergies Allergy Verified 06/24/25 10:21 Exam Narrative: Exam Narrative: Fine GEN: Alert and oriented, sitting comfortably in bed HEENT: EOMIs bilaterally, no scleral icterus CV: RRR, No concerning murmurs R: LCTA bilaterally Ext: wwp, no concerning edema, wearing SCDs Skin: No concerning skin lesions or rashes on exposed skin Neuro: Nonfocal Psych: Appropriate Const: Vital Signs, click to edit/add: Vital Signs - 24 hr 06/24/25 10:51 06/24/25 11:50 06/24/25 11:55 Temperature 98.3 F Pulse Rate 89 81 78 Respiratory Rate 20 20 20 Blood Pressure 157/87 H 145/71 H 111/74 Pulse Oximetry 96 96 88 Oxygen Delivery Me thod Room Air Nasal Cannula OxyMask Oxygen Flow Rate 3 5 06/24/25 12:00 06/24/25 12:10 06/24/25 12:17 Temperature Pulse Rate 78 73 76 Respiratory Rate 20 20 20 Blood Pressure 138/73 98/53 L 113/56 L Pulse Oximetry 95 98 97 Oxygen Delivery Me thod OxyMask OxyMask Nasal Cannula Oxygen Flow Rate 5 5 3 06/24/25 15:20 06/24/25 15:25 06/24/25 15:30 Temperature 97.5 F L Pulse Rate 72 68 52 L Respiratory Rate 16 14 14 Blood Pressure 88/48 L 81/48 L 90/40 L Pulse Oximetry 95 93 93 Oxygen Delivery Me thod Room Air Room Air Room Air Oxygen Flow Rate 06/24/25 15:35 06/24/25 15:40 06/24/25 15:45 Temperature Pulse Rate 67 68 66 Respiratory Rate 14 16 14 Blood Pressure 103/56 L 95/46 L 96/52 L Pulse Oximetry 93 95 94 Oxygen Delivery Me thod Room Air Room Air Room Air Oxygen Flow Rate 06/24/25 15:50 Temperature Pulse Rate 70 Respiratory Rate 14 Blood Pressure 105/52 L Pulse Oximetry 95 Oxygen Delivery Me thod Room Air Oxygen Flow Rate Assessment and Plan Assessment and plan (1) Status post left knee replacement: Problem comment: - 06/24/25Loc Status: Acute (2) Hypertension: Status: Acute (3) Cardiomyopathy: Problem comment: - reassuring TTE 01/2024 Status: Acute (4) Diabetes mellitus: Status: Acute Plan - pain management and prophylaxis per orthopedic surgery team - continue home medications for comorbidities - anticipate routine postoperative course
--- NOTE | 2025-06-24 19:17 | PC.NURSE ---
Nursing Care Hours: [id number] Pt this shift calm and cooperative, alert and oriented. Nausea upon admission, emesis x2, declined medicines. VSS. Pain increased after walk to bathroom, treated with PO meds. Up in chair end of shift. Ate 50% of meal Pedal pulses present.
[2025-06-24] MEDS: CEFAZOLIN 2 GM in 0.9 % SODIUM CHLORIDE Mini-bag 100 ML IVPB (20:20)
[2025-06-24] MEDS: SENNOSIDES 1 TAB TABLET 2 TAB PO (20:22)
[2025-06-24] MEDS: ASPIRIN 81 MG TABLET EC PO (20:23)
[2025-06-24] MEDS: ATORVASTATIN CALCIUM 40 MG TABLET PO (20:23)
[2025-06-25 02:15] VITALS: BP 105/47; PULSE 74; RESP 18; TEMP 36.6; O2SAT 92
[2025-06-25] MEDS: CEFAZOLIN 2 GM in 0.9 % SODIUM CHLORIDE Mini-bag 100 ML IVPB (03:58)
--- NOTE | 2025-06-25 05:40 | PC.NURSE ---
Shift note: Patient is doing well ambulating with A1. walker and GB. Tolerated regular diet well. However, pt reported 3 emesis yesterday. Dressing intact, clean and dry. Vitally stable. Patient had difficulty sleeping. 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 Pain has been tolerated well. Maximum pain rated at 5/10.
[2025-06-25 06:16] LABS: Hematocrit* 40.8 % (33.0-51.0); Hemoglobin* 13.4 gm/dL (12.0-16.0); Immature Granulocytes Abs Auto 0.02 K/uL (0.00-0.30); Immature Granulocytes Pct Auto 0.2 %; Lymphocytes Absolute Auto 2.23 K/uL (0.90-2.90); Mean Corpuscular HGB Conc 33 gm/dL (32-36); Mean Corpuscular Hemoglobin 30 pg (26-34); Mean Corpuscular Volume 92 fL (80-100); RDW Coefficient of Variation % 13.2 % (11.5-15.5); Red Blood Count* 4.42 m/uL (4.00-5.20); White Blood Count* 9.96 K/uL (4.50-11.00)
[2025-06-25 06:21] LABS: Slide Review Reflex No
[2025-06-25 06:22] LABS: Chloride* 106 mmol/L (96-114); Potassium* 3.7 mmol/L (3.6-5.1); Sodium* 136 mmol/L (135-149)
[2025-06-25 06:25] LABS: Anion Gap 5 mEq/L (7-15); Blood Urea Nitrogen* 24 mg/dL (7-30); Calcium* 9.2 mg/dL (8.4-10.6); Carbon Dioxide* 25 mmol/L (20-32); Creatinine* 0.8 mg/dL (0.5-1.5); Est. Creatinine Clearance* 37.24; Estimated Glomerular Filt Rate 77 ml/min; Glucose* 80 mg/dL (60-115)
[2025-06-25] MEDS: OMEPRAZOLE 20 MG CAPSULE DR PO (06:47)
[2025-06-25] MEDS: ACETAMINOPHEN 500 MG TABLET 1000 MG PO (06:47)
[2025-06-25 07:00] VITALS: BP 135/64; PULSE 73; RESP 22; O2SAT 92
--- NOTE | 2025-06-25 07:45 | PM.ORPN ---
Subjective Subjective Time Seen by Provider: 07:45 Date Seen: 06/25/25 Principal diagnosis: Status post left knee replacement Interval history: Diane did not get much sleep last night she states, however she has been mobile since surgery, ambulating to the restroom. She underwent Iovera/ cryoneurolysis prior to surgery. Ortho Exam Narrative Exam Narrative: Alert and oriented x3. Patient is in no acute distress. Converses without labored breathing. Hearing is grossly intact. Ambulates with a walker. Examination of the left knee shows the dressing is intact. No erythema or warmth or sign of infection. Mild anterior knee hematoma. Calves are soft and nontender. CMS is intact left lower extremity. She is able to straight leg raise. Const Vital Signs, click to edit/add: Vital Signs - 24 hr 06/24/25 10:51 06/24/25 11:50 06/24/25 11:55 Temperature 98.3 F Pulse Rate 89 81 78 Pulse Rate [Right Pulse Oximeter] Respiratory Rate 20 20 20 Blood Pressure 157/87 H 145/71 H 111/74 Blood Pressure [Left Arm] Pulse Oximetry 96 96 88 Oxygen Delivery Method Room Air Nasal Cannula OxyMask Oxygen Flow Rate 3 5 06/24/25 12:00 06/24/25 12:10 06/24/25 12:17 Temperature Pulse Rate 78 73 76 Pulse Rate [Right Pulse Oximeter] Respiratory Rate 20 20 20 Blood Pressure 138/73 98/53 L 113/56 L Blood Pressure [Left Arm] Pulse Oximetry 95 98 97 Oxygen Delivery Method OxyMask OxyMask Nasal Cannula Oxygen Flow Rate 5 5 3 06/24/25 15:20 06/24/25 15:25 06/24/25 15:30 Temperature 97.5 F L Pulse Rate 72 68 52 L Pulse Rate [Right Pulse Oximeter] Respiratory Rate 16 14 14 Blood Pressure 88/48 L 81/48 L 90/40 L Blood Pressure [Left Arm] Pulse Oximetry 95 93 93 Oxygen Delivery Method Room Air Room Air Room Air Oxygen Flow Rate 06/24/25 15:35 06/24/25 15:40 06/24/25 15:45 Temperature Pulse Rate 67 68 66 Pulse Rate [Right Pulse Oximeter] Respiratory Rate 14 16 14 Blood Pressure 103/56 L 95/46 L 96/52 L Blood Pressure [Left Arm] Pulse Oximetry 93 95 94 Oxygen Delivery Method Room Air Room Air Room Air Oxygen Flow Rate 06/24/25 15:50 06/24/25 16:15 06/24/25 16:30 Temperature Pulse Rate 70 Pulse Rate [Right Pulse Oximeter] 64 72 Respiratory Rate 14 16 16 Blood Pressure 105/52 L Blood Pressure [Left Arm] 105/57 L Pulse Oximetry 95 93 96 Oxygen Delivery Method Room Air Room Air Room Air Oxygen Flow Rate 06/24/25 16:45 06/24/25 17:00 06/24/25 17:20 Temperature Pulse Rate Pulse Rate [Right Pulse Oximeter] 57 L 64 65 Respiratory Rate Blood Pressure Blood Pressure [Left Arm] 109/57 L 116/82 140/78 H Pulse Oximetry 95 96 95 Oxygen Delivery Method Room Air Room Air Room Air Oxygen Flow Rate 06/24/25 18:00 06/24/25 19:00 06/24/25 20:05 Temperature 97.8 F 97.6 F Pulse Rate Pulse Rate [Right Pulse Oximeter] 68 80 75 Respiratory Rate 18 18 18 Blood Pressure Blood Pressure [Left Arm] 202/100 H 125/49 L 107/50 L Pulse Oximetry 96 94 94 Oxygen Delivery Method Room Air Room Air Room Air Oxygen Flow Rate 06/24/25 21:05 06/24/25 22:05 06/24/25 23:00 Temperature 97.6 F 97.7 F Pulse Rate Pulse Rate [Right Pulse Oximeter] 77 82 Respiratory Rate 18 18 18 Blood Pressure Blood Pressure [Left Arm] 112/56 L 120/67 Pulse Oximetry 94 93 92 Oxygen Delivery Method Room Air Room Air Room Air Oxygen Flow Rate 06/24/25 23:00 06/25/25 02:15 Temperature 97.8 F 97.9 F Pulse Rate Pulse Rate [Right Pulse Oximeter] 77 74 Respiratory Rate 18 18 Blood Pressure Blood Pressure [Left Arm] 126/61 105/47 L Pulse Oximetry 92 92 Oxygen Delivery Method Room Air Room Air Oxygen Flow Rate Assessment and Plan Assessment and plan (1) Status post left knee replacement: Problem details: - 06/24/25Loc Status: Acute Assessment and Plan: Plan for discharge is today to home if they meet discharge criteria. DVT prophylaxis includes aspirin 81 mg twice daily x1 month, Compression stockings as needed for swelling. Frequent ambulation, every hour throughout the day. Remove dressing in 1 week. Observe wound and phone Orthopedics with any questions or concerns Return to clinic in 1-2 weeks for a wound check as scheduled Return to clinic in 6 weeks with surgeon Minimize narcotic use. Wean off and discontinue soon as possible. Activities as tolerated. No strenuous activity. Outpatient physical therapy as scheduled. Ice and elevate the operative extremity. No restriction on ice. With cryoneurolysis prior to surgery, we are anticipating reduced pain, reduced narcotic use
[2025-06-25] MEDS: ASPIRIN 81 MG TABLET EC PO (08:18)
[2025-06-25] MEDS: SENNOSIDES 1 TAB TABLET 2 TAB PO (08:18)
[2025-06-25] MEDS: SPIRONOLACTONE 25 MG TABLET PO (08:19)
[2025-06-25] MEDS: LOSARTAN POTASSIUM 50 MG TABLET 100 MG PO (08:19)
--- NOTE | 2025-06-25 10:55 | PC.NURSE ---
Discharge Note pt A/o x4, pleasant and cooperative. Discharge instructions given verbally and written to patient and daughter, all questions answered, IV removed, cath tip intact. pt transported out of hospital with wheelchair and accompanied by daughter at 1047.
== END 2025-06-25 10:47 | disposition home or self-care (01) ==
LOC: OR 10:12 → MEDSURG 10:12
PROVIDERS: Family Medicine; PCP Internal Medicine; Visit Provider Orthopaedic Surgery
PROC: (CPT 27447; principal; 2025-06-24 12:00)
DX: M17.12 Unilateral primary osteoarthritis, left knee (principal); G89.18 Other acute postprocedural pain; E11.9 Type 2 diabetes mellitus without complications; E66.9 Obesity, unspecified; Z68.37 Body mass index [BMI] 37.0-37.9, adult; Z79.4 Long term (current) use of insulin; Z79.85 Long-term (current) use of injectable non-insulin antidiabetic drugs; Z79.82 Long term (current) use of aspirin; I11.9 Hypertensive heart disease without heart failure; I43 Cardiomyopathy in diseases classified elsewhere; Z87.891 Personal history of nicotine dependence
CPT/HCPCS: 27447; 01402; 36415; 64447; 64454; 73560; 76942; 80048; 82962; 85025; 97110; 97116; 97161; 97165; 97535; 99100; A9270; C1776; J0665; J0690; J2250; J2371; J2405; J2704; J3010; J7120

== ENCOUNTER 2025-07-26 08:30 | Outpatient (RCR) | payer MEDICARE, BC, SELFPAY ==
--- NOTE | 2025-07-26 13:27 | PT.OPDNX ---
[facility] Daily Note Start: 06/28/25 10:52 Freq: Status: Active Protocol: Document 07/26/25 08:48 NLR (Rec: 07/26/25 13:27 NLR [id number]) E-signed By Razia Gregory DPT PT OP Daily Progress Note Visit Information Note Type Discharge Note Visit Number 8 Insurance Information Recert Due Date 09/26/25 Insurance Name Medicare B,[employer] Medical Diagnosis M17.12 Primary knee arthritis left Z96.652 Presence of artificial joint left knee Treating Diagnosis M25.562 Pain left knee M25.662 Stiffness left knee M62.552 Weakness left thigh Referring MD Brett Monterroso MD Subjective Preferred Name DIANE Subjective Diane seen for brief final session today to finalize her HEP. She is getting ready to go to her [place] home in [facility] as soon as she sees Dr. Monterroso next week. She states she is independent and offers no questions or concerns regarding HEP or functional activities. Overall she is doing quite well. Pain Comments 0-10/02 Date of Last 06/24/25 Physician Visit Date of Next 08/05/25 Physician Visit Date of Surgery (If 06/24/25 applicable) Home Exercise Home Exercise Updated and finalized [facility] with patient today. Comments Access Code: [email or web address] URL: [email or web address] Date: 07/26/2025 Prepared by: Razia Gregory Exercises - Seated Ankle Pumps - 3-5 x daily - 7 x weekly - 10 reps - edema management exercise type - Supine Short Arc Quad - 3 x daily - 7 x weekly - 10 reps - 5 seconds hold - strength exercise type - Active Straight Leg Raise with Quad Set - 3 x daily - 7 x weekly - 10 reps - 2-3 seconds hold - strength exercise type - Seated Knee Flexion Stretch - 3 x daily - 7 x weekly - 1-2 reps - 10-30 seconds hold - range of motion/ stretch exercise type - Seated Passive Knee Extension - 3 x daily - 7 x weekly - 1-2 reps - 1-5 minutes hold - range of motion /stretch exercise type - Sitting Knee Extension with Resistance - 2 x daily - 7 x weekly - 2 sets - 10 reps - 3-5 second hold - strength exercise type - Seated Hamstring Curl with Anchored Resistance - 2 x daily - 7 x weekly - 2 sets - 10 reps - 2-3 seconds hold - strength exercise type - Seated Hip Abduction with Resistance - 2 x daily - 7 x weekly - 2 sets - 10 reps - 2-3 seconds hold - strength exercise type - Seated Knee Lifts with Resistance - 2 x daily - 7 x weekly - 2 sets - 10 reps - 2-3 second hold - strength exercise type - Supported Controlled Step Up - 2 x daily - 7 x weekly - 10 reps - 2-3 seconds hold - strength exercise type - Supported Controlled Forward Step Down - 2 x daily - 7 x weekly - 2 sets - 10 reps - 2-3 seconds hold - strength exercise type - Standing Terminal Knee Extension at Wall with Ball - 2 x daily - 7 x weekly - 2 sets - 10 reps - 2-3 seconds hold - strength exercise type - Supported Y Slider - 2 x daily - 7 x weekly - 2 sets - 10 reps - 2-3 seconds hold - strength exercise type Objective Other/Pertinent I mobility, functional strength and range of motion Objective Patient Instructed Yes in Risks/Benefits Therapeutic Exercise Therapeutic Exercise 25 Minutes (minutes) Therapeutic Exercise - Recumbent bike seat 8 5' full revolutions : To Restore - Leg Press seat 3 70# Functional Status - Quad extension 25# - HS Curls 40# - Seated Knee Flexion Stretch 125 degrees - Seated Passive Knee Extension 0 degrees - Supported Controlled Step Up 6 step - Supported Controlled Forward Step Down 6 step - Standing Terminal Knee Extension at Wall with Ball - Supported Y Slider (sock on hardwood) Treatment Minutes Timed Code Treatment 25 Minutes Total Treatment Time 25 Billing Units Therapeutic Exercise 2 Units Assessment/Impression Assessment/ Diane has progressed quite rapidly. Her ROM is Impression functional at 0-128. She is walking and doing stairs independently (she still comes down steps with a step- to pattern out of an abundance of caution). She walks without gait aid, is doing her HEP regularly and reports she is independent with all functional mobility . She is leaving for her winter home at [facility] next week after she sees Dr. Monterroso and Dr. Maldonado. No further skilled intervention indicated at this time, will DC with HEP and all goals achieved. Primary Functional None Limitations Plan of Care Physical Therapy 1. Patient will be independent with home exercise Goals program as instructed, modified and progressed by physical therapist in order to be independently and actively participating in their rehabilitation and return to prior level of function. Goal to be achieved by 09/24/2025. ACHIEVED 2. Patient will demonstrate ability to walk for 45 minutes(s) without significant increase in pain greater than 2/10 to allow patient to be able to safely and independently return to participation in desired level of function with daily activities such walking for exercise without pain or difficulty. Goal to be achieved by 09/24/2025. ACHIEVED 3. Patient will ascend/descend 2 full flight(s) of stairs with [id number] pattern without significant increase in difficulty or pain over 2/10 allowing for safe and independent mobility through their home/work environment. Goal to be achieved by 09/24/2025. ACHIEVED Daily Plan of Care Discharge Daily Plan of Care L knee 0-128 Comments Discharge Note Discharge Summary Diane has progressed quite rapidly. Her ROM is functional at 0-128. She is walking and doing stairs independently (she still comes down steps with a step- to pattern out of an abundance of caution). She walks without gait aid, is doing her HEP regularly and reports she is independent with all functional mobility . She is leaving for her winter home at [facility] next week after she sees Dr. Monterrsoo and Dr. Maldonado. No further skilled intervention indicated at this time, will DC with HEP and all goals achieved. Date of First Visit 06/28/25 for Therapy Date of Last Visit 07/26/25 for Therapy Initial Primary Difficulty walking long distances without gait aid, Functional difficulty going up and down stairs step over step. Limitations Pain Level at 0-1/10 Discharge Interventions Gait Training,Manual Therapy,Neuromuscular Re-Ed, Provided During Therapeutic Exercise,Self Care/Home Management Treatment Recommendations/ Met All Therapy Goals Reason for Discharge Discharge DC with HEP Instructions Thank You For This Thank you for this physical therapy referral. Discharge Referral is attached. Signature not required. Contact us if you have any questions or concerns by phone at [phone] or by fax at [phone] attn: Razia Hoover, PT, DPT.
== END 2025-07-29 13:42 | disposition home or self-care (01) ==
PROVIDERS: PCP Internal Medicine; Visit Provider Orthopaedic Surgery
DX: Z47.1 Aftercare following joint replacement surgery (principal); M17.12 Unilateral primary osteoarthritis, left knee; M25.562 Pain in left knee; Z96.652 Presence of left artificial knee joint
CPT/HCPCS: 97110; 97112; 97140; 97161